=== PATIENT | female | born 1945 | race Caucasian/White ===

== ENCOUNTER 2018-04-26 02:01 | Emergency (ER) | payer MEDICARE, OTHER ==
[~2018-04-26] VITALS: Ht 152.4 cm; Wt 54.4 kg
[~2018-04-26 02:01] MED LIST: [UNRECOGNIZED DRUG - CODE] PO
[2018-04-26 02:05] VITALS: BP 161/57
[2018-04-26 03:19] LABS: APPEARANCE,URINE SL CLOUDY (CLEAR); BILIRUBIN,URINE 1+ (NEGATIVE); BLOOD, URINE 1+ Ery/uL (NEGATIVE); COLOR,URINE RED (YELLOW); KETONES,URINE TRACE (NEGATIVE); LEUKOCYTE ESTERASE ,URINE 3+ (NEGATIVE); NITRITE, URINE POSITIVE (NEGATIVE); PROTEIN,URINE 2+ mg/dl (NEGATIVE); UGLUCOSE 1+ mg/dL (NEGATIVE); UROBILINOGEN,URINE >=8.0 EU/dL (0.2)
[2018-04-26] MEDS ORDERED: FLUCONAZOLE (100 MG) 100 MG TABLET ONE (03:41)
[2018-04-26] MEDS ORDERED: CEFTRIAXONE 1 G VIAL ONE (03:41)
[2018-04-26] MEDS ORDERED: LIDOCAINE 0.5% HCL 50 ML VIAL ONE (03:42)
[2018-04-26] MEDS ORDERED: CEFTRIAXONE 1 G VIAL IM ONE (04:00)
[2018-04-26] MEDS ORDERED: FLUCONAZOLE (100 MG) 100 MG TABLET PO ONE (04:00)
[2018-04-26 04:03] LABS: BACTERIA,URINE Few /HPF (None Seen); MUCUS,URINE Few /LPF (None Seen); SQUAMOUS EPITHELIAL CELL,UR Moderate /HPF (None Seen); WBC,URINE 81-100 /HPF (0-3)
== END 2018-04-26 03:58 | disposition home or self-care (01) ==
LOC: ER 02:03
DX: N39.0 Urinary tract infection, site not specified (principal); J45.909 Unspecified asthma, uncomplicated; Z88.2 Allergy status to sulfonamides
CPT/HCPCS: 81001; 87086; 96372; 99284; A4606; J0696; J3490; Z7610; 81000-TC

== ENCOUNTER 2018-04-28 12:09 | Emergency (ER) | payer OTHER ==
[~2018-04-28] VITALS: Ht 160 cm; Wt 59.9 kg
[2018-04-28 12:17] VITALS: BP 145/81
== END 2018-04-28 12:34 | disposition home or self-care (01) ==
LOC: ER 12:10
DX: G47.00 Insomnia, unspecified (principal); J45.909 Unspecified asthma, uncomplicated; Z88.2 Allergy status to sulfonamides
CPT/HCPCS: 99281; A4606; Z7610; Z7502

== ENCOUNTER 2019-03-13 05:44 | Emergency (ER) | payer BC ==
[~2019-03-13] VITALS: Ht 165.1 cm; Wt 55.3 kg
[~2019-03-13 05:44] MED LIST changes: +AMOX125S11 PO; -[UNRECOGNIZED DRUG - CODE] PO
--- NOTE | 2019-03-13 06:00 | NUR ---
bibs fro c/o dizziness x 1 day.
[2019-03-13] MEDS ORDERED: MECLIZINE HCL 12.5 MG TABLET ONE (06:23)
[2019-03-13 06:29] LABS: BASOPHILS # (AUTO) 0.1 /CMM (0.0-0.2); BASOPHILS % (AUTO) 2.1 % (0.0-2.0); HEMATOCRIT 40 % (33-45); HEMOGLOBIN 13.5 g/dL (11.5-14.8); LYMPHOCYTES # (AUTO) 1.1 /CMM (0.8-4.8); LYMPHOCYTES % (AUTO) 16.1 % (20.0-44.0); MEAN CORPUSCULAR HGB CONC 34 g/dl (31.0-36.0); MEAN CORPUSCULAR VOLUME 92 fL (82-100); MONOCYTES # (AUTO) 0.3 /CMM (0.1-1.30); MONOCYTES % (AUTO) 4.6 % (2.0-12.0); NEUTROPHILS # (AUTO) 5.2 /CMM (1.8-8.9); NEUTROPHILS % (AUTO) 75.2 % (43.0-81.0); PLATELET COUNT (AUTO) 217 /CMM (150-450); RED BLOOD CELL COUNT(AUTO) 4.34 MIL/uL (4.0-5.2); WHITE BLOOD COUNT (AUTO) 6.9 K/uL (4.3-11.0)
[2019-03-13] MEDS ORDERED: IV NS 0.9% 1,000 ML BAG IV ONE (06:30)
[2019-03-13] MEDS ORDERED: MECLIZINE HCL 12.5 MG TABLET PO ONE (06:30)
[2019-03-13 06:35] LABS: CALCIUM, SERUM 8.6 mg/dL (8.5-10.1); CARBON DIOXIDE 24 mmol/L (21-32); CHLORIDE 104 mmol/L (98-107); CREATININE 0.9 mg/dL (0.6-1.3); GLUCOSE 170 mg/dL (74-106); POTASSIUM 3.3 mmol/L (3.5-5.1); SODIUM SERUM 139 mmol/L (136-145); UREA NITROGEN, BLOOD 17 mg/dL (7-18)
[2019-03-13 06:42] LABS: CHOLESTEROL 184 mg/dL (<200); HDL CHOLESTEROL 62 mg/dL (40-60); LDL 109 mg/dL (0-99); TRIGLYCERIDES 52 mg/dL (30-150)
[2019-03-13] MEDS ORDERED: ASPIRIN 81 MG TAB.CHEW ONE (07:20)
[2019-03-13] MEDS ORDERED: ASPIRIN 81 MG TAB.CHEW PO ONE (07:30)
[2019-03-13 07:33] LABS: BILIRUBIN,URINE Negative (NEGATIVE); BLOOD, URINE Moderate Ery/uL (NEGATIVE); COLOR,URINE Yellow (YELLOW); KETONES,URINE Negative (NEGATIVE); LEUKOCYTE ESTERASE ,URINE Large (NEGATIVE); NITRITE, URINE Negative (NEGATIVE); PROTEIN,URINE Negative (NEGATIVE); UGLUCOSE 100 MG/DL mg/dL (NEGATIVE); UROBILINOGEN,URINE 0.2 EU/dL (0.2)
[2019-03-13 07:38] LABS: APPEARANCE,URINE SLIGHTLY CLOUDY (CLEAR)
[2019-03-13 07:40] LABS: BACTERIA,URINE Moderate /HPF (None Seen); SQUAMOUS EPITHELIAL CELL,UR Many /HPF (None Seen); WBC,URINE 81-100 /HPF (0-3)
[2019-03-13 07:50] VITALS: BP 138/74
--- NOTE | 2019-03-13 08:04 | NUR ---
IV removed. Catheter intact and site benign. Pressure and 4x4 applied to site. No bleeding noted.Patient discharged to home in stable condition. Written and verbal after care instructions given. Patient verbalizes understanding of instruction.
== END 2019-03-13 08:06 | disposition home or self-care (01) ==
LOC: ER 05:49
DX: R42 Dizziness and giddiness (principal); I10 Essential (primary) hypertension; R94.31 Abnormal electrocardiogram [ECG] [EKG]; J45.909 Unspecified asthma, uncomplicated; Z88.2 Allergy status to sulfonamides
CPT/HCPCS: 36415; 70450; 71045; 80048; 80061; 81001; 82962; 84484; 85025; 85730; 87086; 93005; 96360; 99284; J7030; J8597; 81000-TC

== ENCOUNTER 2019-03-13 18:41 | Emergency (ER) | payer BC ==
[~2019-03-13] VITALS: Ht 165.1 cm; Wt 49.9 kg
--- NOTE | 2019-03-13 19:25 | NUR ---
BIBS FOR C/O WEAKNESS. PT SEEMS ANXIOUS. WAS [facility]EN [facility] THIS MORNING FOR VERTIGO WHICH IS TREATED .
[2019-03-13] MEDS ORDERED: POTASSIUM CHLORIDE 20 MEQ TAB.PRT.SR PO ONE ×2 (20:15→20:30)
--- NOTE | 2019-03-13 20:49 | NUR ---
Patient discharged to home in stable condition. Rx and Written and verbal after care instructions given. Patient verbalizes understanding of instruction.
[2019-03-13 20:50] VITALS: BP 161/85
== END 2019-03-13 20:56 | disposition home or self-care (01) ==
LOC: ER 18:48
DX: F41.9 Anxiety disorder, unspecified (principal); E87.6 Hypokalemia; N39.0 Urinary tract infection, site not specified; J45.909 Unspecified asthma, uncomplicated; Z88.2 Allergy status to sulfonamides; Z60.2 Problems related to living alone

== ENCOUNTER 2019-03-16 08:17 | Emergency (ER) | payer BC ==
[~2019-03-16] VITALS: Ht 154.9 cm; Wt 50.8 kg
[2019-03-16 08:26] VITALS: BP 163/74
[2019-03-16] MEDS ORDERED: CEFTRIAXONE 1 G VIAL ONE (08:48)
[2019-03-16] MEDS ORDERED: LIDOCAINE /MPF 1% VIAL 5 ML VIAL ONE (08:48)
[2019-03-16] MEDS ORDERED: CEFTRIAXONE 1 G VIAL IM ONE (09:00)
== END 2019-03-16 09:21 | disposition home or self-care (01) ==
LOC: ER 08:22
DX: I10 Essential (primary) hypertension (principal); N39.0 Urinary tract infection, site not specified; J45.909 Unspecified asthma, uncomplicated; Z88.2 Allergy status to sulfonamides
CPT/HCPCS: 96372; 99283; J0696; J3490

== ENCOUNTER 2019-03-21 06:08 | Emergency (ER) | payer BC ==
[~2019-03-21] VITALS: Ht 154.9 cm; Wt 50.8 kg
[2019-03-21 06:39] VITALS: BP 166/83
== END 2019-03-21 06:44 | disposition home or self-care (01) ==
LOC: ER 06:14
DX: F41.9 Anxiety disorder, unspecified (principal); I10 Essential (primary) hypertension; J45.909 Unspecified asthma, uncomplicated; Z88.2 Allergy status to sulfonamides; Z60.2 Problems related to living alone

== ENCOUNTER 2020-12-06 18:27 | Emergency (ER) | payer BC ==
[~2020-12-06] VITALS: Ht 157.5 cm; Wt 54.4 kg
--- NOTE | 2020-12-06 19:17 | NUR ---
Patient came in to the er c/o "Feel lightheaded/dizzy/weak/brain fog. + scant Blood in roof in mouth". On room air, breathing evenly and unlabored. Connected to the monitor and pulse ox. kept comfortable, will continue to monitor accordingly.
[2020-12-06 19:21] LABS: BILIRUBIN,URINE NEGATIVE (NEGATIVE); COLOR,URINE YELLOW (YELLOW); LEUKOCYTE ESTERASE ,URINE SMALL (NEGATIVE); NITRITE, URINE NEGATIVE (NEGATIVE); PH,URINE 5.5 (5.0-8.0); PROTEIN,URINE TRACE mg/dl (NEGATIVE); UGLUCOSE NEGATIVE (NEGATIVE); UROBILINOGEN,URINE 0.2 EU/dL (0.2)
[2020-12-06 19:32] LABS: BACTERIA,URINE 1+ /HPF (None Seen); SQUAMOUS EPITHELIAL CELL,UR Moderate /HPF (None Seen)
[2020-12-06 19:39] LABS: CALCIUM, SERUM 9.1 mg/dL (8.5-10.1); CARBON DIOXIDE 23 mmol/L (21-32); CHLORIDE 102 mmol/L (98-107); GLUCOSE 116 mg/dL (74-106); POTASSIUM 3.7 mmol/L (3.5-5.1); SODIUM SERUM 137 mmol/L (136-145); UREA NITROGEN, BLOOD 28 mg/dL (7-18)
[2020-12-06] MEDS ORDERED: CEPH500C2 PO (19:48)
[2020-12-06 20:04] LABS: BASOPHILS # (AUTO) 0.1 /CMM (0.0-0.2); BASOPHILS % (AUTO) 0.6 % (0.0-2.0); EOSINOPHILS % (AUTO) 2.5 % (0.0-6.0); HEMATOCRIT 40 % (33-45); LYMPHOCYTES % (AUTO) 25.1 % (20.0-44.0); MEAN CORPUSCULAR HGB CONC 33 g/dl (31.0-36.0); MEAN CORPUSCULAR VOLUME 90 fL (82-100); MONOCYTES # (AUTO) 0.6 /CMM (0.1-1.30); MONOCYTES % (AUTO) 7.6 % (2.0-12.0); NEUTROPHILS # (AUTO) 5.1 /CMM (1.8-8.9); NEUTROPHILS % (AUTO) 64.2 % (43.0-81.0); PLATELET COUNT (AUTO) 248 /CMM (150-450); RED BLOOD CELL COUNT(AUTO) 4.42 MIL/uL (4.0-5.2)
--- NOTE | 2020-12-06 20:31 | NUR ---
Patient discharged to home in stable condition. Written and verbal after care instructions given. Patient verbalizes understanding of instruction and RX. IV removed. Catheter intact and site benign. Pressure and 4x4 applied to site. No bleeding noted.
[2020-12-06 20:32] VITALS: BP 131/76
== END 2020-12-06 20:32 | disposition home or self-care (01) ==
LOC: ER 18:29
DX: R42 Dizziness and giddiness (principal); K12.0 Recurrent oral aphthae; N39.0 Urinary tract infection, site not specified; I10 Essential (primary) hypertension; J45.909 Unspecified asthma, uncomplicated; Z88.2 Allergy status to sulfonamides; Z60.2 Problems related to living alone; Z79.899 Other long term (current) drug therapy
CPT/HCPCS: 36415; 80048-TC; 81001; 84484-TC; 85025-TC; 87086-TC

== ENCOUNTER 2024-06-19 02:18 | Emergency (ER) | payer BC ==
[~2024-06-19] VITALS: Ht 162.6 cm; Wt 54.0 kg
[~2024-06-19 02:18] MED LIST changes: +CEPH500C2 PO
[2024-06-19 02:32] VITALS: BP 134/86; TEMP 97.9; O2SAT 98
[2024-06-19] MEDS ORDERED: AMOX-430 PO (02:54)
== END 2024-06-19 03:45 | disposition home or self-care (01) ==
LOC: ER 02:26
DX: H66.93 Otitis media, unspecified, bilateral (principal); H60.93 Unspecified otitis externa, bilateral; I10 Essential (primary) hypertension; J45.909 Unspecified asthma, uncomplicated; E03.9 Hypothyroidism, unspecified; Z88.2 Allergy status to sulfonamides; Z60.2 Problems related to living alone

== ENCOUNTER 2025-06-08 09:07 | Emergency (ER) | payer BC ==
[~2025-06-08] VITALS: Ht 162.6 cm; Wt 54.0 kg
[~2025-06-08 09:07] MED LIST changes: +AMOX-430 PO
[2025-06-08] MEDS ORDERED: KETO10TA2 PO (09:51)
[2025-06-08] MEDS ORDERED: KETOROLAC TROMETHAMINE INJ 30 MG/ML VIAL ONE (09:52)
[2025-06-08] MEDS: KETOROLAC TROMETHAMINE INJ 30 MG/ML VIAL IM ONE (09:57)
[2025-06-08 10:08] VITALS: BP 145/82; TEMP 98; O2SAT 98
== END 2025-06-08 10:09 | disposition home or self-care (01) ==
LOC: ER 09:07
DX: M72.2 Plantar fascial fibromatosis (principal); I10 Essential (primary) hypertension; J45.909 Unspecified asthma, uncomplicated; Z88.2 Allergy status to sulfonamides
CPT/HCPCS: 99283; 96372; J1885